=== PATIENT | male | born 1990 | race African-American/Black ===

== ENCOUNTER 2017-12-29 19:53 | Emergency (ER) | payer BC, OTHER, SELFPAY | END 2017-12-29 20:29 | disposition home or self-care (01) | LOC: SCSER 19:53 | DX: B34.9 Viral infection, unspecified (principal); J45.909 Unspecified asthma, uncomplicated | CPT/HCPCS: 99283 ==

== ENCOUNTER 2018-02-05 01:38 | Emergency (ER) | payer SELFPAY | END 2018-02-05 02:07 | disposition home or self-care (01) | LOC: SCSER 01:38 | DX: J45.909 Unspecified asthma, uncomplicated (principal); Z79.899 Other long term (current) drug therapy | CPT/HCPCS: 94640; J7620 ==

== ENCOUNTER 2018-02-16 21:46 | Emergency (ER) | payer OTHER, SELFPAY ==
[2018-02-16 22:27] LABS: Bilirubin Negative (Negative); Blood, Urine Negative (Negative); Clarity Clear (Clear); Glucose, Urine (Dipstick) Negative (Negative); Leukocyte Negative (Negative); Nitrite Negative (Negative); Protein, Urine (Dipstick) Negative (Neg-Trace); Specific Gravity, Urine 1.025 (1.002-1.036); Urobilinogen 0.2 mg/dL (0.2-1.0)
[2018-02-16 22:45] LABS: #Basophils 0.1 thou/uL (0.0-0.2); #Eosinphils 0.7 thou/uL (0.0-0.7); #Lymphocytes 3.2 thou/uL (1.20-3.40); #Monocytes 0.9 thou/uL (0.11-0.59); #Neutrophils 5.6 thou/uL (1.40-6.50); %Basophils 0.7 % (0.0-1.0); %Eosinophils 6.4 % (0.0-10.0); %Lymphocytes 30.9 % (21.0-51.0); %Monocytes 8.6 % (0.0-10.0); %Neutrophils 53.5 % (42.0-75.0); Hemoglobin 14.6 g/dL (14.0-18.0); Mean Corpuscular HGB CONC 33.1 g/dL (32.0-36.0); Mean Corpuscular Hemoglobin 29.6 pg (27.0-31.0); Mean Corpuscular Volume 89.4 fl (80.0-94.0); Mean Platelet Volume 7.4 fL (7.4-10.4); Platelet Count 201 thou/uL (130-400); RBC Distribution Width 11.1 % (11.5-14.5); Red Blood Cell (RBC) Count 4.95 mill/uL (4.70-6.10); White Blood Cell (WBC) Count 10.5 thou/uL (4.8-10.8)
[2018-02-16 23:09] LABS: ALT (SGPT) 16 U/L (8-55); AST (SGOT) 25 U/L (5-34); Albumin 3.9 g/dL (3.5-5.0); Alkaline Phosphatase 75 U/L (40-150); Anion Gap 10 mmol/L (10-20); BUN (Urea Nitrogen) 16 mg/dL (8.9-20.6); Bilirubin, Total 0.9 mg/dL (0.2-1.2); Calc. Creatinine Clearance 0 mL/min (70-130); Calcium 8.7 mg/dL (7.8-10.44); Carbon Dioxide 27 mmol/L (22-29); Chloride 106 mmol/L (98-107); Estimated GFR-MDRD Greater than 90; Globulin 2.3 g/dL (2.4-3.5); Glucose 88 mg/dL (70-105); Potassium 4.2 mmol/L (3.5-5.1); Protein, Total 6.2 g/dL (6.0-8.3); Sodium 139 mmol/L (136-145)
[2018-02-17] MEDS ORDERED: Pepto Bismol Chew TAB PO SCH (00:45)
== END 2018-02-17 01:06 | disposition home or self-care (01) ==
LOC: ERS 21:46
DX: A08.4 Viral intestinal infection, unspecified (principal); J45.909 Unspecified asthma, uncomplicated; Z79.899 Other long term (current) drug therapy
CPT/HCPCS: 36415; 80053; 81003; 85025; 99284

== ENCOUNTER 2018-04-29 16:56 | Emergency (ER) | payer SELFPAY | END 2018-04-29 18:05 | disposition home or self-care (01) | LOC: ERS 16:56 | DX: J30.9 Allergic rhinitis, unspecified (principal); J45.909 Unspecified asthma, uncomplicated | CPT/HCPCS: 99283 ==

== ENCOUNTER 2018-07-14 17:58 | Emergency (ER) | payer SELFPAY | END 2018-07-14 20:36 | disposition home or self-care (01) | LOC: SCSER 17:58 | DX: T78.40XA Allergy, unspecified, initial encounter (principal); Z79.899 Other long term (current) drug therapy | CPT/HCPCS: 99284 ==

== ENCOUNTER 2018-08-06 19:20 | Emergency (ER) | payer SELFPAY ==
[2018-08-06] MEDS ORDERED: predniSONE 20 MG TAB ONE (19:54)
== END 2018-08-06 20:35 | disposition home or self-care (01) ==
LOC: SCSER 19:20
DX: J45.901 Unspecified asthma with (acute) exacerbation (principal); J06.9 Acute upper respiratory infection, unspecified; Z79.899 Other long term (current) drug therapy
CPT/HCPCS: J7506; J7620

== ENCOUNTER 2018-08-10 19:30 | Emergency (ER) | payer SELFPAY | END 2018-08-10 20:51 | disposition home or self-care (01) | LOC: SCSER 19:30 | DX: J34.89 Other specified disorders of nose and nasal sinuses (principal); J45.909 Unspecified asthma, uncomplicated; Z79.899 Other long term (current) drug therapy | CPT/HCPCS: 99283 ==

== ENCOUNTER 2018-10-10 | Inpatient (IN) | payer SELFPAY ==
[2018-10-10] MEDS ORDERED: Lidocaine 1% w/Epinephrine 1:100K 20 ML VIAL ONE (00:33)
[2018-10-10] MEDS ORDERED: CEFAZOLIN 2 GM/50 ML BAG ONE (00:46)
[2018-10-10] MEDS ORDERED: Adacel (T-DAP) 0.5 ML SYRINGE ONE (00:53)
[2018-10-10] MEDS ORDERED: Morphine 4 MG/ML VIAL ONE (01:09)
[2018-10-10] MEDS ORDERED: Promethazine HCl 25 MG/ML VIAL ONE (01:09)
[2018-10-10 01:22] LABS: #Basophils 0.1 thou/uL (0.0-0.2); #Eosinphils 0.4 thou/uL (0.0-0.7); #Lymphocytes 1.8 thou/uL (1.20-3.40); #Monocytes 0.9 thou/uL (0.11-0.59); #Neutrophils 8.4 thou/uL (1.40-6.50); %Basophils 0.7 % (0.0-1.0); %Eosinophils 3.5 % (0.0-10.0); %Lymphocytes 15.3 % (21.0-51.0); %Neutrophils 72.5 % (42.0-75.0); Hemoglobin 13.7 g/dL (14.0-18.0); Mean Corpuscular HGB CONC 32.4 g/dL (32.0-36.0); Mean Corpuscular Hemoglobin 28.5 pg (27.0-31.0); Mean Corpuscular Volume 87.8 fL (78.0-98.0); Mean Platelet Volume 8.2 fL (7.4-10.4); Platelet Count 196 thou/uL (130-400); RBC Distribution Width 11.1 % (11.5-14.5); Red Blood Cell (RBC) Count 4.81 mill/uL (4.70-6.10); White Blood Cell (WBC) Count 11.6 thou/uL (4.8-10.8)
[2018-10-10 01:44] LABS: ALT (SGPT) 24 U/L (8-55); AST (SGOT) 30 U/L (5-34); Albumin 3.6 g/dL (3.5-5.0); Alkaline Phosphatase 67 U/L (40-150); Anion Gap 11 mmol/L (10-20); BUN (Urea Nitrogen) 9 mg/dL (8.9-20.6); Bilirubin, Total 0.4 mg/dL (0.2-1.2); Calc. Creatinine Clearance 0 mL/min (70-130); Calcium 8.5 mg/dL (7.8-10.44); Carbon Dioxide 26 mmol/L (22-29); Chloride 108 mmol/L (98-107); Estimated GFR-MDRD Greater than 90; Globulin 2.3 g/dL (2.4-3.5); Glucose 124 mg/dL (70-105); Potassium 4.1 mmol/L (3.5-5.1); Protein, Total 5.9 g/dL (6.0-8.3); Sodium 141 mmol/L (136-145)
[2018-10-10] MEDS ORDERED: Morphine 4 MG/ML VIAL SLOW IVP PRN ×2 (03:29→10:04)
[2018-10-10 03:31] VITALS: BMI 34.4
[2018-10-10] MEDS ORDERED: Meperidine HCl/PF 25 MG/ML VIAL IM PRN ×2 (03:33→10:06)
[2018-10-10] MEDS ORDERED: Promethazine HCl 25 MG/ML VIAL IM PRN ×2 (03:34→09:40)
[2018-10-10] MEDS: CEFAZOLIN 2 GM/50 ML-DEXTROSE 2 GM in Premix Bag 1 BAG IVPB SCH ×2 (05:07→12:55)
[2018-10-10] MEDS: Gentamicin Sulfate 80 MG in Premix Bag 1 BAG IVPB SCH ×3 (05:08→21:23)
[2018-10-10] MEDS: Gabapentin 300 MG CAP PO SCH ×3 (05:09→20:03)
[2018-10-10] MEDS ORDERED: Sodium Chloride 0.9% 50 ML ONE (05:51)
[2018-10-10] MEDS ORDERED: Midazolam HCl 2 mg/2 ml Vial ONE (05:52)
[2018-10-10] MEDS ORDERED: Fentanyl 100 MCG/2 ML VIAL ONE ×2 (05:52→08:23)
[2018-10-10] MEDS ORDERED: Bacitracin Zinc Ointment 30 gm TUBE ONE (08:49)
[2018-10-10] MEDS ORDERED: HYDROmorphone 2 MG/ML VIAL SLOW IVP PRN (09:40)
[2018-10-10] MEDS ORDERED: PACU-Morphine 4MG/ML VIAL SLOW IVP PRN (09:40)
[2018-10-10] MEDS ORDERED: Ondansetron HCl/PF 4 MG/2 ML Vial IVP PRN (09:40)
[2018-10-10] MEDS ORDERED: Promethazine HCl 25 MG/ML VIAL SLOW IVP PRN (09:40)
--- NOTE | 2018-10-10 09:50 | RAD ---
RIGHT FOREARM TWO VIEWS: 10/10/2018 HISTORY: Injury. Laceration with glass. COMPARISON: None. FINDINGS: There are foci of subcutaneous gas within the proximal and mid right forearm, along the volar aspect, consistent with the provided history of laceration. There is a cluster of multiple subcentimeter pu nctate foreign bodies within the soft tissues, along the volar aspect of the mid forearm, laterally, measuring up to 4 mm, suggesting glass fragments. No associated fracture or dislocation. IMPRESSION: Soft tissue gas and foreign bodies within the mid/proximal right forearm, as above. POS: [facility]
[2018-10-10] MEDS ORDERED: traMADol HCl 50 MG TAB PO PRN (10:04)
[2018-10-10] MEDS ORDERED: Acetaminophen 325 MG TAB PO PRN (10:04)
[2018-10-10] MEDS ORDERED: HYDROcodone/Acetaminophen 5/325 mg Tablet PO PRN (10:04)
[2018-10-10] MEDS ORDERED: Milk Of Magnesia 30 ML UDCUP PO PRN (10:04)
[2018-10-10] MEDS ORDERED: Bisacodyl 10 MG SUPP PR PRN (10:04)
[2018-10-10] MEDS ORDERED: Communication Order-Pharmacy FS SCH (10:15)
[2018-10-10] MEDS ORDERED: TETANUS AND DIPHTHERIA TOX/PF 0.5 ML DISP.SYRIN IM SCH (10:15)
[2018-10-10] MEDS ORDERED: Ondansetron PF 4 MG/2 ML Vial ONE (14:38)
[2018-10-10] MEDS ORDERED: Dexamethasone 20 MG/5 ML VIAL ONE (14:38)
[2018-10-10] MEDS ORDERED: Lidocaine 1% PF 5 ML VIAL ONE (14:38)
[2018-10-10] MEDS ORDERED: Ketorolac Tromethamine 30 MG/ML VIAL ONE (14:38)
[2018-10-10] MEDS ORDERED: PROPOFOL 200 MG/20 ML VIAL ONE (14:38)
[2018-10-10] MEDS: Ketorolac Tromethamine 30 MG/ML VIAL IVP PRN ×2 (15:20→21:30)
[2018-10-10] MEDS: HYDROcodone/Acetaminophen 7.5/325 mg Tablet PO PRN (17:29)
[2018-10-10] MEDS: Aspirin 81 mg Enteric Coated Tablet PO SCH (20:02)
[2018-10-10] MEDS ORDERED: Vancomycin HCl 1 GM in Premix Bag 1 BAG IVPB SCH (21:00)
[2018-10-11] MEDS: Gabapentin 300 MG CAP PO SCH (04:55)
[2018-10-11] MEDS: HYDROcodone/Acetaminophen 7.5/325 mg Tablet PO PRN (05:56)
[2018-10-11 06:57] LABS: #Eosinphils 0.1 thou/uL (0.0-0.7); #Lymphocytes 1.6 thou/uL (1.20-3.40); #Neutrophils 9.2 thou/uL (1.40-6.50); %Basophils 0.4 % (0.0-1.0); %Eosinophils 0.9 % (0.0-10.0); %Lymphocytes 13.2 % (21.0-51.0); %Monocytes 8.7 % (0.0-10.0); %Neutrophils 76.9 % (42.0-75.0); Hemoglobin 12.6 g/dL (14.0-18.0); Mean Corpuscular HGB CONC 32.5 g/dL (32.0-36.0); Mean Corpuscular Volume 89.4 fL (78.0-98.0); Mean Platelet Volume 8.1 fL (7.4-10.4); Platelet Count 183 thou/uL (130-400); RBC Morphology Normal; Red Blood Cell (RBC) Count 4.32 mill/uL (4.70-6.10); White Blood Cell (WBC) Count 11.9 thou/uL (4.8-10.8)
[2018-10-11] MEDS: Aspirin 81 mg Enteric Coated Tablet PO SCH (08:22)
[2018-10-11 12:01] VITALS: BP 124/78; TEMP 97.9
--- NOTE | 2018-10-12 02:48 | OP ---
DATE OF PROCEDURE: 10/10/2018 PREOPERATIVE DIAGNOSIS: Multiple extensor tendons with wound, 10 cm over the dorsal, mid, distal third junction of forearm. FINDINGS: 1. Extensor digitorum communis to the index, long, ring finger, and small finger laceration, complete. 2. Abductor pollicis longus muscle belly laceration, nearly complete. 3. Extensor carpi radialis longus and extensor carpi radialis brevis, complete tendon laceration; all of these in the mid to distal third forearm, they are complete and brachioradialis approximately laceration with the patient having intact light touch, superficial ulnar nerve, superficial radial nerve territory preop and 10 cm total wound. PROCEDURES PERFORMED: 1. Debridement of wound. 2. Closure of wound, 10 cm. 3. Extensor digitorum communis index finger repair. 4. Extensor digitorum communis long finger repair. 5. Extensor digitorum communis ring finger repair. 6. Extensor digitorum communis small finger repair. 7. Abductor pollicis longus muscle belly repair. 8. Extensor carpi radialis longus repair. 9. Extensor carpi radialis brevis repair. 10. Brachioradialis repair. 11. Application of short-arm splint. 12. 10 cm wound forearm repair, complex, multilayer. Debridement techniques; as follows: 1. Excisional technique. 2. Instruments used include irrigation with 5 L of Pulsavac; tenotomy scissors; Adson; curette; there was no gross contamination. The debridement included fat, muscle, subcutaneous tissue, dermis and epidermis. DESCRIPTION OF PROCEDURE: After successful general endotracheal anesthesia, the limb was prepped and draped. Primarily, the patient had a 6 cm laceration transverse that did not connect with a 2 cm skin bridge to a 3 cm laceration, did not connect and there was more proximal 1 cm laceration. Total of 10 cm. We then made a zig-zag pattern with tourniquet inflated and limb exsanguinated, and connected these and extended the incision distally 6 cm and proximally about 4. We dissected down through skin and subcutaneous tissue, and saw the laceration of the tendons and deep to this, there was an impression about 1 cm x 2 cm long. Under the tendon laceration here, there was a small violation of cortical bone. We began our debridement here with a curette and a small rongeur. Then, we performed debridement as listed above for the wound and other material associated with this open injury. We then did a 5 L irrigation, Pulsavac with antibiotics appropriate concentration at the site. Then, we began our repair with the abductor pollicis longus muscle belly repair using aheavy #2-0 Ethibond with an OS-4 needle. We then repaired the brachioradialis partial laceration using a #2 Ethibond with multiple [id number] sutures, but the remaining tendons, extensor digitorum communis of the index, long, ring, and small finger, extensor carpi radialis longus and extensor carpi radialis brevis all repaired using a flexor tendon type technique where we used 2 loop sutures in a modified Francis-Alfonso 8-strand technique and then random with 4-0 Prolene for the smaller tendons and 5-0 for the larger ones over-sewing. This will be a running suture. After this, I could flex and extend the wrist 45 degrees. The fingers became extended more at the MP joint, and I could not flex them beyond the natural position now with extension and there was no undue tension or gap formation. We released the tourniquet, obtained hemostasis, closed the wound with interrupted Monocryl of 4-0 and then using interrupted 4-0 nylon in a mattress pattern to complete the epidermal repair. The patient left the operating room without evidence of anesthetic or operative complication and we applied a sugar-tong splint. Job ID: [id number]
== END 2018-10-11 13:52 | disposition home or self-care (01) | DRG 908 ==
LOC: ERS → OBSVTOIN 01:05 → SURG B 01:05 → SURG A 12:47
PROVIDERS: ADMIT Orthopaedic Surgery Hand Surgery; ATTEND Orthopaedic Surgery Hand Surgery
PROC: 0LQ50ZZ Repair Right Lower Arm and Wrist Tendon, Open Approach (ICD-10-PCS; principal; 2018-10-11)
PROC: 0XQ Anatomical Regions, Upper Extremities, Repair (ICD-10-PCS; 2018-10-11)
DX: S51.821A Laceration with foreign body of right forearm, initial encounter (principal); S66.320A Laceration of extensor muscle, fascia and tendon of right index finger at wrist and hand level, initial encounter; S66.324A Laceration of extensor muscle, fascia and tendon of right ring finger at wrist and hand level, initial encounter; S66.326A Laceration of extensor muscle, fascia and tendon of right little finger at wrist and hand level, initial encounter; S66.322A Laceration of extensor muscle, fascia and tendon of right middle finger at wrist and hand level, initial encounter; S66.221A Laceration of extensor muscle, fascia and tendon of right thumb at wrist and hand level, initial encounter; S66.821A Laceration of other specified muscles, fascia and tendons at wrist and hand level, right hand, initial encounter; S56.521A Laceration of other extensor muscle, fascia and tendon at forearm level, right arm, initial encounter; W25.XXXA Contact with sharp glass, initial encounter; Y93.89 Activity, other specified; Y92.019 Unspecified place in single-family (private) house as the place of occurrence of the external cause
CPT/HCPCS: 29125; 36415; 80053; 85025; 86900; 86901; 90471; 90715; 96361; 96365; 96375; J0690; J1100; J1580; J1885; J2001; J2250; J2270; J2405; J2550; J2704; J3010; J3370; J3490; J7050

== ENCOUNTER 2019-04-27 18:54 | Emergency (ER) | payer BC, SELFPAY | END 2019-04-27 19:25 | disposition home or self-care (01) | LOC: ERS 18:54 | DX: J06.9 Acute upper respiratory infection, unspecified (principal); J45.909 Unspecified asthma, uncomplicated; Z79.51 Long term (current) use of inhaled steroids | CPT/HCPCS: 99281 ==

== ENCOUNTER 2019-06-25 17:47 | Emergency (ER) | payer BC, SELFPAY ==
--- NOTE | 2019-06-25 18:05 | RAD ---
EXAM: 3 views of the right hand COMPARISON: None HISTORY: Hand pain after injury/trauma FINDINGS: 3 views of the right hand shows a fracture of the proximal aspect of the fourth metacarpal. The fracture appears extra-articular. No degenerative changes are seen. Mild soft tissue swelling is present. IMPRESSION: Fourth metacarpal fracture
[2019-06-25] MEDS ORDERED: Ibuprofen 800 MG TAB ONE (20:11)
[2019-06-25] MEDS ORDERED: HYDROcodone/Acetaminophen 5/325 mg Tablet ONE (20:11)
== END 2019-06-25 20:45 | disposition home or self-care (01) ==
LOC: ERS 17:47
DX: S62.314A Displaced fracture of base of fourth metacarpal bone, right hand, initial encounter for closed fracture (principal); J45.909 Unspecified asthma, uncomplicated; Z79.51 Long term (current) use of inhaled steroids; W22.8XXA Striking against or struck by other objects, initial encounter
CPT/HCPCS: 29125

== ENCOUNTER 2019-10-23 23:57 | Emergency (ER) | payer BC, SELFPAY | END 2019-10-24 00:56 | disposition home or self-care (01) | LOC: ERS 23:57 | DX: J45.901 Unspecified asthma with (acute) exacerbation (principal); Z79.899 Other long term (current) drug therapy | CPT/HCPCS: 99284 ==

== ENCOUNTER 2020-08-23 14:09 | Outpatient (CLI) | payer BC ==
--- NOTE | 2020-08-23 15:08 | RAD ---
3 views of the lumbar spine: 08/23/2020 COMPARISON: None HISTORY: Back pain, fall in April FINDINGS: Lumbar pedicles appear intact on the frontal exam. The lateral radiograph demonstrates norm al vertebral body height and alignment. No acute osseous abnormality. If there are radicular symptoms, follow-up MRI suggested. IMPRESSION: No acute findings.
== END 2020-08-23 14:10 | disposition home or self-care (01) ==
LOC: BICRAD 14:09
PROVIDERS: ATTEND Physician Assistant
DX: M54.5 Low back pain (principal); G89.29 Other chronic pain
CPT/HCPCS: 72100

== ENCOUNTER 2020-09-18 10:20 | Emergency (ER) | payer BC ==
[2020-09-18] MEDS ORDERED: Ibuprofen 200 MG TAB ONE (11:03)
[2020-09-18] MEDS ORDERED: Acetaminophen 500 MG TAB ONE (11:03)
[2020-09-18 16:30] LABS: SARS-CoV-2 MS2 Positive; SARS-CoV-2 N Gene Negative; SARS-CoV-2 S Gene Negative; SARS-CoV-2 by NAA Not Detected (NotDetected); SARS-CoV-2 orf1ab Negative
== END 2020-09-18 12:33 | disposition home or self-care (01) ==
LOC: ERS 10:20
DX: B34.9 Viral infection, unspecified (principal); Z20.828 Contact with and (suspected) exposure to other viral communicable diseases; J45.909 Unspecified asthma, uncomplicated; Z79.51 Long term (current) use of inhaled steroids
CPT/HCPCS: 87635; 87804; 99283; U0003

== ENCOUNTER 2021-04-19 16:27 | Emergency (ER) | payer BC ==
[2021-04-19] MEDS ORDERED: Ondansetron ODT 4 MG TAB ONE (16:46)
== END 2021-04-19 16:54 | disposition home or self-care (01) ==
LOC: ERS 16:27
DX: R11.0 Nausea (principal); J45.909 Unspecified asthma, uncomplicated; Z79.899 Other long term (current) drug therapy
CPT/HCPCS: 99283; Q0162

== ENCOUNTER 2021-06-26 11:52 | Emergency (ER) | payer BC | END 2021-06-26 14:51 | disposition home or self-care (01) | LOC: ERS 11:52 | DX: R19.7 Diarrhea, unspecified (principal); J45.909 Unspecified asthma, uncomplicated | CPT/HCPCS: 99283 ==